=== PATIENT | female | born 1930 | race Caucasian/White ===

== ENCOUNTER → 2018-07-10 | Outpatient (CLI) | payer MEDICARE ==
[~2018-07-10] MED LIST: ACID REDUCER 1150 MG; ASPI81EC PO; ATEN50 PO; CALCAVITD PO; CARV3.125 PO; CLOB.05TC TP; CYAN100 PO; DEXL60CA3 PO; ESTRTP PV; GABA100 PO; OMEP20ER PO; PRESERVISION L1 EACH PO; SIMV10 PO
== END | disposition home or self-care (01) ==
LOC: LAB 15:27 → LAB SHORT 15:27
DX: R30.0 Dysuria (principal)
CPT/HCPCS: 87086

== ENCOUNTER 2020-11-05 13:46 | Day surgery (SDC) | payer MEDICARE ==
[~2020-11-05] VITALS: Ht 154.9 cm; Wt 55.9 kg
[2020-11-05] MEDS ORDERED: Estrace Vagin42.5 GM PV (14:16)
--- NOTE | 2020-11-05 15:58 | NUR ---
11/05/20 1558 Patti John PT ASSISTED TO RESTROOM 1542. PT UNDERSTANDING IN DELAY OF START TIME DUE TO DELAY IN PREVIOUS CASES
== END 2020-11-05 17:26 | disposition home or self-care (01) ==
LOC: ORSCSDS 13:46
PROVIDERS: Ophthalmology
PROC: 08BQ0ZX Excision of Right Lower Eyelid, Open Approach, Diagnostic (ICD-10-PCS; principal; 2020-11-05 15:00)
PROC: 087X7DZ Dilation of Right Lacrimal Duct with Intraluminal Device, Via Natural or Artificial Opening (ICD-10-PCS; principal; 2020-11-05 15:00)
DX: A42.9 Actinomycosis, unspecified (principal); I10 Essential (primary) hypertension; K21.9 Gastro-esophageal reflux disease without esophagitis; G89.29 Other chronic pain; G62.9 Polyneuropathy, unspecified; E78.1 Pure hyperglyceridemia; M19.90 Unspecified osteoarthritis, unspecified site; H35.30 Unspecified macular degeneration; I48.91 Unspecified atrial fibrillation; Z79.82 Long term (current) use of aspirin; Z79.899 Other long term (current) drug therapy
CPT/HCPCS: 88305; 88312; A9270; J0171; J2250; J2704; J3010; J7040; J7120